=== PATIENT | male | born 2000 | race Caucasian/White ===

== ENCOUNTER 2023-07-12 16:15 | Emergency (ER) | payer OTHER ==
[2023-07-12] MEDS ORDERED: Ketorolac Tromethamine 30 MG (1 mL) VIAL ONE (17:11)
[2023-07-12 17:36] LABS: #Basophils 0.1 thou/uL (0.0-0.2); #Eosinphils 0.2 thou/uL (0.0-0.7); #Monocytes 0.5 thou/uL (0.11-0.59); #Neutrophils 2.1 thou/uL (1.40-6.50); %Basophils 0.9 % (0.0-1.0); %Eosinophils 3.2 % (0.0-10.0); %Lymphocytes 48.7 % (28.0-48.0); %Monocytes 9.5 % (0.0-4.0); %Neutrophils 37.5 % (31.0-61.0); Hemoglobin 13.5 g/dL (14.0-18.0); Mean Corpuscular HGB CONC 33.8 g/dL (32.0-36.0); Mean Corpuscular Hemoglobin 29.9 pg (25.0-35.0); Mean Corpuscular Volume 88.7 fl (78.0-98.0); Mean Platelet Volume 8.9 fL (7.4-10.4); Platelet Count 298 10x3/uL (130-400); RBC Distribution Width 12.2 % (11.5-14.5); Red Blood Cell (RBC) Count 4.51 mill/uL (4.00-5.20); White Blood Cell (WBC) Count 5.6 10x3/uL (4.8-10.8)
[2023-07-12 18:07] LABS: ALT (SGPT) 15 U/L (8-55); AST (SGOT) 22 U/L (5-34); Albumin 4.5 g/dL (3.5-5.0); Alkaline Phosphatase 48 U/L (50-130); Anion Gap 11 mmol/L (10-20); BUN (Urea Nitrogen) 14 mg/dL (8.9-20.6); Bilirubin, Total 0.5 mg/dL (0.2-1.2); CK (CPK) 139 U/L (30-200); Calc. Creatinine Clearance 0 mL/min (70-130); Calcium 9.6 mg/dL (7.8-10.44); Carbon Dioxide 29 mmol/L (22-29); Chloride 102 mmol/L (98-107); Estimated GFR 129; Globulin 3.3 g/dL (2.4-3.5); Glucose 86 mg/dL (70-105); Potassium 3.8 mmol/L (3.5-5.1); Protein, Total 7.8 g/dL (6.0-8.3); Sodium 138 mmol/L (136-145)
[2023-07-12 18:10] LABS: Troponin I Less than 0.010 ng/mL (< 0.028)
== END 2023-07-12 19:12 | disposition home or self-care (01) ==
LOC: ERS 16:15
DX: M79.605 Pain in left leg (principal); M79.604 Pain in right leg; F17.210 Nicotine dependence, cigarettes, uncomplicated
CPT/HCPCS: 71275; 80053; 82550; 84484; 85025; 93970; 96374; J1885

== ENCOUNTER 2023-09-17 23:08 | Emergency (ER) | payer OTHER ==
[2023-09-18 03:05] LABS: #Basophils 0.04 10x3/uL (0.0-0.2); %Basophils 0.5 % (0.0-1.0); %Eosinophils 2.9 % (0.0-10.0); %Lymphocytes 31.8 % (21.0-51.0); %Neutrophils 56.6 % (42.0-75.0); Hematocrit 40.2 % (42.0-52.0); Hemoglobin 13.7 g/dL (14.0-18.0); Mean Corpuscular HGB CONC 34.1 g/dL (32.0-36.0); Mean Corpuscular Hemoglobin 30.1 pg (27.0-31.0); Mean Corpuscular Volume 88.4 fL (78.0-98.0); Mean Platelet Volume 8.8 fL (7.4-10.4); Platelet Count 290 10x3/uL (130-400); RBC Distribution Width 11.9 % (11.5-14.5); Red Blood Cell (RBC) Count 4.55 mill/uL (4.70-6.10)
[2023-09-18 03:15] LABS: Globulin 3.1 g/dL (2.4-3.5)
[2023-09-18 03:19] LABS: ALT (SGPT) 8 U/L (8-55); AST (SGOT) 17 U/L (5-34); Alkaline Phosphatase 36 U/L (40-110); Anion Gap 14 mmol/L (10-20); BUN (Urea Nitrogen) 11 mg/dL (8.9-20.6); Bilirubin, Total 0.5 mg/dL (0.2-1.2); Calc. Creatinine Clearance 0 mL/min (70-130); Calcium 9.2 mg/dL (7.8-10.44); Carbon Dioxide 18 mmol/L (22-29); Chloride 104 mmol/L (98-107); Estimated GFR 132; Glucose 80 mg/dL (70-105); Potassium 3.3 mmol/L (3.5-5.1); Protein, Total 7.1 g/dL (6.0-8.3); Sodium 133 mmol/L (136-145)
[2023-09-18] MEDS ORDERED: Dexamethasone 10 MG/ML VIAL ONE (03:29)
== END 2023-09-18 04:25 | disposition home or self-care (01) ==
LOC: ERS 23:08
DX: J02.9 Acute pharyngitis, unspecified (principal); F17.210 Nicotine dependence, cigarettes, uncomplicated
CPT/HCPCS: 36415; 80053; 85025; 87081; 87430; 96374; J1100